=== PATIENT | male | born 1960 | race Caucasian/White ===

== ENCOUNTER 2019-12-05 15:58 | Outpatient (REF) | payer BC, SELFPAY | END 2019-12-05 15:59 | disposition home or self-care (01) | LOC: HO.LAB 15:58 | PROVIDERS: PCP Internal Medicine; Visit Provider Internal Medicine | DX: Z20.828 Contact with and (suspected) exposure to other viral communicable diseases (principal) | CPT/HCPCS: 36415; 87635 ==